=== PATIENT | male | born 1955 | race Caucasian/White ===

== ENCOUNTER 2017-07-24 08:09 | Day surgery (SDC) | payer OTHER ==
[2017-07-19 18:17] VITALS: BMI 26.7
[~2017-07-24 08:09] MED LIST: LACTATED RINGERS 1,000 ML IV SCH; LIDOCAINE 1% 20 ML VIAL (10MG/ML) FOR IV START INTRADERMA PRN; MIDAZOLAM 2 MG/2 ML VIAL IV PRN
[2017-07-24 09:02] VITALS: TEMP 97.9
--- NOTE | 2017-07-24 09:09 | P.GSHP ---
History of Present Illness H&P Date: 07/24/17 Chief Complaint: Screening colonoscopy This is a 62-year-old male referred from the [facility] clinic. He presents today for colonoscopy. Past Medical History Past Medical History: Diabetes Mellitus, Hyperlipidemia, Osteoarthritis (OA) Additional Past Medical History / Comment(s): change in bowel habits, low b/p History of Any Multi-Drug Resistant Organisms: None Reported Past Surgical History: No Surgical Hx Reported Past Anesthesia/Blood Transfusion Reactions: No Reported Reaction Smoking Status: Current every day smoker Medications and Allergies Home Medications Medication Instructions Recorded Confirmed Type Atorvastatin [Lipitor] 20 mg PO HS 07/19/17 07/19/17 History Meloxicam [Mobic] 7.5 mg PO DAILY 07/19/17 07/19/17 History metFORMIN HCL [Glucophage] 500 mg PO BID 07/19/17 07/19/17 History Allergies Allergy/AdvReac Type Severity Reaction Status Date / Time ether AdvReac headache/na Verified 07/24/17 09:03 usea [facility] - Exam Vital Signs Temp Pulse Resp BP Pulse Ox 97.9 F 53 L 18 175/86 97 07/24/17 09:01 07/24/17 09:01 07/24/17 09:01 07/24/17 09:01 07/24/17 09:01 - General well developed, no distress - Eyes PERRL - ENT normal pinna - Neck no masses - Respiratory normal expansion - Cardiovascular Rhythm: regular - Abdomen Abdomen: soft, non tender Assessment and Plan Assessment: We'll perform screening colonoscopy.
[2017-07-24] MEDS ORDERED: PROPOFOL 10 MG/ML 20 ML VIAL IV ONE (09:13)
--- NOTE | 2017-07-24 09:14 | P.GSHP ---
History of Present Illness H&P Date: 07/24/17 Chief Complaint: Screening colonoscopy This is a 62-year-old male who presents today for screening colonoscopy. He has never had a colonoscopy before. Past Medical History Past Medical History: Diabetes Mellitus, Hyperlipidemia, Osteoarthritis (OA) Additional Past Medical History / Comment(s): change in bowel habits, low b/p History of Any Multi-Drug Resistant Organisms: None Reported Past Surgical History: No Surgical Hx Reported Past Anesthesia/Blood Transfusion Reactions: No Reported Reaction Smoking Status: Current every day smoker Medications and Allergies Home Medications Medication Instructions Recorded Confirmed Type Atorvastatin [Lipitor] 20 mg PO HS 07/19/17 07/19/17 History Meloxicam [Mobic] 7.5 mg PO DAILY 07/19/17 07/19/17 History metFORMIN HCL [Glucophage] 500 mg PO BID 07/19/17 07/19/17 History Allergies Allergy/AdvReac Type Severity Reaction Status Date / Time ether AdvReac headache/na Verified 07/24/17 09:03 usea Surgical - Exam Vital Signs Temp Pulse Resp BP Pulse Ox 97.9 F 53 L 18 175/86 97 07/24/17 09:01 07/24/17 09:01 07/24/17 09:01 07/24/17 09:01 07/24/17 09:01 - General well developed, no distress - Eyes PERRL - ENT normal pinna - Neck no masses - Respiratory normal expansion - Cardiovascular Rhythm: regular - Abdomen Abdomen: soft, non tender Assessment and Plan Assessment: We'll perform screening colonoscopy.
[2017-07-24 09:16] LABS: Glucose,Whole Blood 131 mg/dL (75-99)
--- NOTE | 2017-07-24 09:26 | P.OP ---
Date of Procedure: 07/24/17 Preoperative Diagnosis: Screening colonoscopy Postoperative Diagnosis: Diverticulosis Procedure(s) Performed: Colonoscopy Anesthesia: MAC Surgeon: Uriah Kolb Pathology: none sent Condition: stable Disposition: PACU Description of Procedure: The patient's placed on the endoscopy table in the lateral position. She received IV sedation. Digital rectal exam was performed which revealed no abnormalities. Flexible colonoscope was then placed patient anus passed throughout the entire colon. The ileocecal valve was visualized. The cecum, ascending and transverse colon appeared normal. In the descending; was mild diverticular changes. Scope was then brought back the rectum and this appeared normal. Scope was withdrawn for patient.
[2017-07-24 09:52] VITALS: BP 156/89; PULSE 65; RESP 16
== END 2017-07-24 10:06 | disposition home or self-care (01) ==
LOC: ORWHC2ENDO 08:09
PROVIDERS: ATTEND Surgery
DX: Z12.11 Encounter for screening for malignant neoplasm of colon (principal); K57.30 Diverticulosis of large intestine without perforation or abscess without bleeding; E11.9 Type 2 diabetes mellitus without complications; E78.5 Hyperlipidemia, unspecified; M19.90 Unspecified osteoarthritis, unspecified site; F17.200 Nicotine dependence, unspecified, uncomplicated; Z79.84 Long term (current) use of oral hypoglycemic drugs; Z79.1 Long term (current) use of non-steroidal anti-inflammatories (NSAID); Z79.899 Other long term (current) drug therapy; Z91.09 Other allergy status, other than to drugs and biological substances
CPT/HCPCS: J2704; G0121